=== PATIENT | female | born 1995 | race Caucasian/White ===

== ENCOUNTER → 2017-05-28 | Outpatient (CLI) | payer BC | LOC: LAB 16:28 | DX: R10.2 Pelvic and perineal pain (principal) | CPT/HCPCS: Q0111 ==

== ENCOUNTER → 2017-08-07 | Outpatient (CLI) | payer BC | LOC: RAD 10:58 | DX: R10.2 Pelvic and perineal pain (principal); Z97.5 Presence of (intrauterine) contraceptive device ==